=== PATIENT | male | born 1965 | race Caucasian/White ===

== ENCOUNTER 2018-07-03 08:51 | Emergency (ER) | payer BC, MEDICARE ==
[~2018-07-03] VITALS: Ht 180.3 cm; Wt 87.5 kg
[~2018-07-03 08:51] MED LIST: DOL10 PO; FAMO-90 PO; GABA400C PO; IPRA14.7 IH; LEVO500T6 PO; PRED20TA5 PO
[2018-07-03 09:00] VITALS: BP 148/95
--- NOTE | 2018-07-03 09:15 | NUR ---
PT AMB TO BED 1
--- NOTE | 2018-07-03 09:24 | NUR ---
C/O LEFT LEG & REDNESS & SWELLING X 2WEEKS,LEFT FACE REDNESS , DRAINAGE & SWELLING X 1 WEEK . DENIES N/V/D; SKIN IS PINK/WARM/DRY; AAOX4 WITH EVEN AND STEADY GAIT; LUNGS CLEAR BL; HR EVEN AND REGULAR; PT DENIES ANY FEVER, CP, SOB, OR COUGH AT THIS TIME; PATIENT STATES PAIN OF 10/10 AT THIS TIME; VSS; PATIENT POSITIONED FOR COMFORT; HOB ELEVATED; BEDRAILS UP X2; BED DOWN. ER MD MADE AWARE OF PT STATUS.
[2018-07-03] MEDS ORDERED: NACL 0.9% 1,000 ML IV SCH (09:38)
[2018-07-03] MEDS ORDERED: CLINDAMYCIN 900 MG in DEXTROSE 5% 100 ML IV ONE (09:40)
[2018-07-03] MEDS ORDERED: CLINDAMYCIN 900 MG/6 ML VIAL IV ONE (10:01)
--- NOTE | 2018-07-03 10:05 | NUR ---
PT IS A HARD STICK, NOTIFIED CHARGE NURSE AND DR. FELICIANO. PT ALSO STATED HE DOES NOT WANT TO PERIPHERAL IV, HE SAYS HE IS A VERY HARD STICK. UNABLE TO GIVE ORDERED IV MEDS RIGHT NOW. DR. FELICIANO MADE AWARE.
[2018-07-03 10:27] LABS: BILIRUBIN,URINE NEGATIVE (NEGATIVE); COLOR,URINE YELLOW (YELLOW); LEUKOCYTE ESTERASE ,URINE NEGATIVE (NEGATIVE); NITRITE, URINE NEGATIVE (NEGATIVE); UGLUCOSE NEGATIVE (NEGATIVE)
[2018-07-03 10:32] LABS: APPEARANCE,URINE SLIGHTLY HAZY (CLEAR)
[2018-07-03 10:33] LABS: BLOOD, URINE TRACE (NEGATIVE); RBC,URINE 3-10 (FEW) /HPF (0-5); WBC,URINE 0-5 (RARE) /HPF (0-5)
[2018-07-03 10:44] LABS: BARBITURATE, URINE NEG. ng/ml (NEG <=200); BENZODIAZEPINE, URINE NEG. ng/mL (NEG <=200); CANNABINOID, URINE POS. ng/mL (NEG <=50); COCAINE, URINE NEG. ng/mL (NEG <=300); OPIATE, URINE POS. ng/mL (NEG <=2000); PHENCYCLIDINE SCREEN,URINE NEG. ng/mL (NEG <=25)
[2018-07-03] MEDS ORDERED: KETOROLAC 60 MG/2 ML VIAL IM ONE (11:20)
[2018-07-03] MEDS ORDERED: CLINDAMYCIN 600 MG/4 ML VIAL IM ONE (11:20)
[2018-07-03] MEDS ORDERED: DOXYCYCLINE 100 MG CAP PO ONE (11:20)
--- NOTE | 2018-07-03 11:25 | NUR ---
SPEAKING WITH --REVIEWED ULTRASOUND READ PLAN IS TO MEDICATE IM AND NO PICC LINE WARRANTED AT THIS TIME. ---PT REFUSED LABS IF HE IS NOT GETTING A PICC LINE MD AWARE
[2018-07-03 12:30] VITALS: BP 135/89
--- NOTE | 2018-07-03 12:30 | NUR ---
Patient discharged with v/s stable. Written and verbal after care instructions given and explained. Patient alert, oriented and verbalized understanding of instructions. Ambulatory with steady gait. All questions addressed prior to discharge. ID band removed. Patient advised to follow up with PMD. Rx of DOXYCYCLINE AND CLINDAMYCIN given. Patient educated on indication of medication including possible reaction and side effects. Opportunity to ask questions provided and answered.
== END 2018-07-03 12:30 | disposition home or self-care (01) ==
LOC: MED 08:51
DX: L08.9 Local infection of the skin and subcutaneous tissue, unspecified (principal); I10 Essential (primary) hypertension; J44.9 Chronic obstructive pulmonary disease, unspecified; Z79.899 Other long term (current) drug therapy
CPT/HCPCS: 71045; 80305; 81001; 87086; 93971; 96372; 99284; J1885; J3490; Q0092

== ENCOUNTER 2018-09-10 16:32 | Emergency (ER) | payer BC ==
[~2018-09-10] VITALS: Ht 180.3 cm; Wt 86.2 kg
[2018-09-10 16:43] VITALS: BP 147/87
--- NOTE | 2018-09-10 19:14 | NUR ---
CALLED PT IN LOBBY, NO RESPONSE, LWBS
--- NOTE | 2018-09-10 19:25 | NUR ---
PT WAS CALLED FROM THE LOBBY FOR THE SECOND TIME, NO RESPONSE, LWBS.
--- NOTE | 2018-09-10 19:26 | NUR ---
PATIENT LEFT WITHOUT BEING SEEN BY DR. FELICIANO. NO FURTHER CARE PROVIDED FOR PATIENT.
== END 2018-09-10 19:25 | disposition left against medical advice (07) ==
LOC: MED 16:32
DX: R07.81 Pleurodynia (principal); Z53.21 Procedure and treatment not carried out due to patient leaving prior to being seen by health care provider
CPT/HCPCS: 81002

== ENCOUNTER 2019-06-13 16:17 | Emergency (ER) | payer BC ==
[~2019-06-13] VITALS: Ht 180.3 cm; Wt 88.5 kg
[2019-06-13 16:35] VITALS: BP 125/58
--- NOTE | 2019-06-13 16:55 | NUR ---
54 YO MALE CO SOB AND WEIGHT GAIN AROUND WAIST X4D. PT HAS HISTORY OF COPD AND CHF. PT TAKES GABAPENTIN AND METHACODONE AT HOME. LUNG SOUNDS DIMINISHED IN ALL LUG HALEY.
[2019-06-13] MEDS ORDERED: IPRATROPIUM 0.02% 0.5 MG/2.5 ML NEBU INH ONE (17:00)
[2019-06-13] MEDS ORDERED: predniSONE 20 MG TAB PO ONE (17:00)
[2019-06-13] MEDS ORDERED: ALBUTEROL 0.083% 2.5 MG/3 ML NEBU INH ONE (17:00)
--- NOTE | 2019-06-13 17:00 | NUR ---
AT BEDSIDE WITH PT
--- NOTE | 2019-06-13 17:25 | NUR ---
RT AT BEDSIDE. LUNG SOUNDS CLEAR AFTER BREATHING TX
[2019-06-13 18:53] VITALS: BP 125/58
--- NOTE | 2019-06-13 18:54 | NUR ---
Patient discharged with v/s stable. Written and verbal after care instructions given and explained. Patient alert, oriented and verbalized understanding of instructions. Ambulatory with steady gait. All questions addressed prior to discharge. ID band removed. Patient advised to follow up with PMD. Rx of NORCO AND PREDINOLOSONE given. Patient educated on indication of medication including possible reaction and side effects. Opportunity to ask questions provided and answered.
== END 2019-06-13 18:54 | disposition home or self-care (01) ==
LOC: MED 16:17
DX: J44.1 Chronic obstructive pulmonary disease with (acute) exacerbation (principal); G89.29 Other chronic pain; M79.644 Pain in right finger(s); I11.0 Hypertensive heart disease with heart failure; I50.9 Heart failure, unspecified; Z79.899 Other long term (current) drug therapy; Z86.19 Personal history of other infectious and parasitic diseases; Z98.890 Other specified postprocedural states
CPT/HCPCS: 71045; 73140; 94640; 99283; J7512; J7613; J7644; Q0092

== ENCOUNTER 2020-11-03 20:19 | Emergency (ER) | payer BC ==
[~2020-11-03] VITALS: Ht 180.3 cm; Wt 81.6 kg
[2020-11-03 20:20] VITALS: BP 139/82
--- NOTE | 2020-11-03 20:20 | NUR ---
GEM RIVERA. TAKEN TO CHAIR C
--- NOTE | 2020-11-03 20:20 | NUR ---
SEE COMPLETE ASSESSMENT
--- NOTE | 2020-11-03 20:31 | NUR ---
Dr. Paniagua examining patient.
[2020-11-03] MEDS ORDERED: MORPHINE SULFATE 4 MG/ML SYR IM ONE (20:35)
--- NOTE | 2020-11-03 20:46 | NUR ---
PATIENT [facility]ICE DEPT. PATIENT EXAMINED BY DR. MCCULLOUGH. PATIENT MEDICALLY CLEARED AND RELEASED IN CUSTODY IN STABLE CONDITION. ORIGINAL PRE-BOOK FORM GIVEN TO OFFICER PERLA, #[id number].
== END 2020-11-03 20:46 ==
LOC: MED 20:19
DX: R51.9 Headache, unspecified (principal); I11.9 Hypertensive heart disease without heart failure; J44.9 Chronic obstructive pulmonary disease, unspecified; Z02.89 Encounter for other administrative examinations; Z79.899 Other long term (current) drug therapy
CPT/HCPCS: 96372; 99283; J2270

== ENCOUNTER 2020-12-31 16:12 | Emergency (ER) | payer BC ==
[~2020-12-31] VITALS: Ht 172.7 cm; Wt 63.5 kg
[~2020-12-31 16:12] MED LIST changes: -DOL10 PO; +METH-1550 PO
[2020-12-31 16:15] VITALS: BP 133/87
--- NOTE | 2020-12-31 16:24 | NUR ---
PT GEMA ALS AND PLACED IN BED 10.
--- NOTE | 2020-12-31 16:28 | NUR ---
CODE BRAIN CALLED BY DR COLEMAN
--- NOTE | 2020-12-31 16:32 | NUR ---
entry level installation technician at bedside transporting patient by helio. Addendum: 12/31/20 at 1739 by JUANITA Pt attached to Telemetry box accompanied by ELIUD.
--- NOTE | 2020-12-31 16:35 | NUR ---
55 y/o M BIBA from outside laundry mat with daughter c/o seizure. Per EMS, witnessed seizure of unknown duration; paramedics on scene gave Versed 5mg IN. Per EMS, patient presented A&Ox4 and became altered upon arrival in ER. Patient noted with numerous silvana to R side of scalp with swelling noted. Pt noted with admit wrist band from [facility] dated 12/29/20. Patient currently arousal to painful stimuli and unable to follow verbal commands at this time. A&Ox0 GCS Eye 2 Motor 4 Verbal 1. Pt placed into gown; AccuChek by EMS 113. Seizure precautions in place. PMH/Sx/Meds: Brain tumor, seizures, Keppra (last taken 2 months ago) Sx: Brain tumor sx
--- NOTE | 2020-12-31 16:50 | NUR ---
Patient back from CT via gurney; placed back onto product safety engineer.
--- NOTE | 2020-12-31 16:55 | NUR ---
EMT at bedside for EKG
--- NOTE | 2020-12-31 17:01 | NUR ---
ERMD at bedside for Ultrasound IV
--- NOTE | 2020-12-31 17:13 | NUR ---
Lab at bedside; UA and blood sample given to CPT Nettie at ER bedside.
[2020-12-31 17:25] LABS: BASOPHILS % (AUTO) 0.7 % (0.0-2.0); EOSINOPHILS # (AUTO) 0.1 K/uL (0-0.4); HEMATOCRIT 30.9 % (36-52); HEMOGLOBIN 9.7 g/dL (12.0-18.0); LYMPHOCYTES # (AUTO) 1.1 K/uL (2.0-11.5); LYMPHOCYTES % (AUTO) 15.3 % (20.5-51.1); MEAN CORPUSCULAR HEMOGLOBIN 24 pg (27-31); MEAN CORPUSCULAR HGB CONC 31 g/dL (33-37); MEAN CORPUSCULAR VOLUME 77.2 fL (80-94); MONOCYTES # (AUTO) 0.7 K/uL (0.8-1.0); MONOCYTES % (AUTO) 9.2 % (1.7-9.3); NEUTROPHILS # (AUTO) 5.3 K/uL (1.8-7.7); NEUTROPHILS % (AUTO) 73.8 % (42.2-75.2); PLATELET COUNT (AUTO) 692 K/uL (140-450); RED CELL DISTRIBUTION WIDTH 16.7 % (11.6-13.7); WHITE BLOOD COUNT (AUTO) 7.2 K/uL (4.8-10.8)
--- NOTE | 2020-12-31 17:30 | NUR ---
UNABLE TO CONTACT NEXT OF KIN; PHONE NUMBERS INCORRECT. PATIENT UNABLE TO PROVIDE ANY ADDITIONAL INFORMATION FOR FAMILY CONTACT. DR. COLEMAN MADE AWARE.
[2020-12-31 17:42] LABS: ANION GAP 10.7 (8-16); CREATININE 0.8 mg/dL (0.6-1.3); POTASSIUM 3.7 mmol/L (3.5-5.1)
[2020-12-31 17:44] LABS: PROTHROMBIN TIME 9.9 secs (10.8-13.4)
[2020-12-31 17:50] LABS: PHENYTOIN (DILANTIN) < 0.5 ug/ml (10.0-20.0)
--- NOTE | 2020-12-31 18:01 | NUR ---
PT OBSERVED IN BED RESTING, VSS, RR EVEN AND UNLABORED.
[2020-12-31 18:17] LABS: BARBITURATE, URINE NEGATIVE ng/ml (NEG <=200); BENZODIAZEPINE, URINE NEGATIVE ng/mL (NEG <=200); CANNABINOID, URINE NEGATIVE ng/mL (NEG <=50); COCAINE, URINE NEGATIVE ng/mL (NEG <=300); OPIATE, URINE POSITIVE ng/mL (NEG <=2000); PHENCYCLIDINE SCREEN,URINE NEGATIVE ng/mL (NEG <=25)
[2020-12-31 18:19] LABS: PHENOBARBITAL < 1 ug/ml (15-40)
--- NOTE | 2020-12-31 18:45 | NUR ---
PATIENT OBSERVED RESTING IN BED, VSS, RR EVEN AND UNLABORED.
--- NOTE | 2020-12-31 18:57 | NUR ---
Patient gave verbal consent to speak with niece. Pt on mobile phone with niece at this time.
--- NOTE | 2020-12-31 19:03 | NUR ---
Cindy Parks (niece) [phone]. Abby (daughter) [phone] Spoke with Cindy who does not know pt's surgeron name @ [facility]. States she lives in [place] and will be able to pick patient up if discharged.
--- NOTE | 2020-12-31 19:20 | NUR ---
Report and transfer of care endorsed to ELIUD Conde.
[2020-12-31] MEDS ORDERED: levETIRAcetam 1,000 MG in NACL 0.9% 100 ML IV ONE (20:30)
[2020-12-31] MEDS ORDERED: levETIRAcetam 100 MG/ML VIAL IV ONE (20:36)
--- NOTE | 2020-12-31 21:10 | NUR ---
JANE COVID SWAB COLLECTED AND TAKEN TO LAB
--- NOTE | 2020-12-31 21:15 | NUR ---
PT. ASKING FOR PAIN MEDICATION FOR HEAD PAIN. DENIZ COLEMAN MADE AWARE. NO NEW ORDERS GIVEN.
--- NOTE | 2020-12-31 21:40 | NUR ---
PT. LAYING IN BED IN POSITION, NO DISTRESS NOTED. BREATHING EVEN AND UNLABORED.
--- NOTE | 2021-01-01 02:00 | NUR ---
PT. IN POSITION, WITH BLANKET OVER HIS HEAD. NO DISTRESS NOTED AT THIS TIME
--- NOTE | 2021-01-01 04:35 | NUR ---
PT. IN SUPINE POSITION, RESTING COMFORTABLY WITH EYES CLOSED. AUDIBLE SNORING SOUNDS CAN BE HEARD, WILL CONTINUE TO MONITOR
--- NOTE | 2021-01-01 05:42 | NUR ---
PT. LAYING IN SUPINE POSITION, HR EVEN AND REGULAR. BREATHING UNLABORED. WILL CONTINUE TO MONITOR
--- NOTE | 2021-01-01 06:35 | NUR ---
PT. RESTING WITH EYES CLOSED IN POSITION, HR EVEN AND REGULAR. BREATHING UNLABORED.
--- NOTE | 2021-01-01 07:16 | NUR ---
REPORT GIVEN TO ELIUD HEALY. TRANSFER OF CARE AT THIS TIME.
--- NOTE | 2021-01-01 07:18 | NUR ---
PATIENT RESTING IN BED, RESP EVEN AND UNLABORED. SEIZURE PADS IN PLACE, AROUSABLE TO VERBAL STIMULI
--- NOTE | 2021-01-01 07:30 | NUR ---
PATIENT HAS LEFT SIDED WEAKNESS/DEFECIT. PUPILS ARE PERRLA BILATERAL. SLURRED SPEECH. RESP EVEN AND UNLABORED. RIGHT CRANIAL SWELLING WITH STITCHES TO TEMPORAL LOBE.
[2021-01-01] MEDS ORDERED: ONDANSETRON 4 MG/2 ML VIAL IVP ONE (08:30)
--- NOTE | 2021-01-01 08:30 | NUR ---
BREAKFAST TRAY PROVIDED AT THIS TIME, PATIENT ABLE TO EAT WITHOUT DYSPHAGIA
--- NOTE | 2021-01-01 08:32 | NUR ---
PATIENT STATES HE IS GOING THROUGH [facility] WITHDRAWS HIS LAST REPORTED USE WAS ABOUT 20 HOURS AGO. MD NOTIFIED. ORDERS PLACED.
--- NOTE | 2021-01-01 09:49 | NUR ---
PATIENT HAS LEFT SIDED WEAKNESS/DEFECIT. PUPILS ARE PERRLA BILATERAL. SLURRED SPEECH. RESP EVEN AND UNLABORED. RIGHT CRANIAL SWELLING WITH STITCHES TO TEMPORAL LOBE DENIES ANY PAIN AT THIS TIME, PATIENT STATES HE IS FEELING TIRED AND WANTS TO REST.
--- NOTE | 2021-01-01 11:32 | NUR ---
BROTHER CONTACT GLENN OLIVIER
--- NOTE | 2021-01-01 11:59 | NUR ---
PATIENT SPEAKING TO BROTHER GLENN ON THE PHONE
--- NOTE | 2021-01-01 12:36 | NUR ---
REPORT CALLED TO [facility] UNIT 13A ROOM 1308, REPORT GIVEN TO DAISY DOLAN RN.
[2021-01-01] MEDS ORDERED: KETOROLAC 30 MG/ML VIAL ONE (12:50)
[2021-01-01] MEDS ORDERED: KETOROLAC 30 MG/ML VIAL IVP ONE (12:50)
[2021-01-01 13:40] VITALS: BP 117/67
--- NOTE | 2021-01-01 13:40 | NUR ---
Patient to be transferred to [facility]. Pt is being transferred due to needing higher level of care; neurosurgery. Receiving facility has accepting physician and available space. Patient or responsible republican has agreed to transfer and signed form. Patient belongings inventoried and will be sent with patient. Copy of nursing notes, lab reports, EKG, Physicians Orders and X-rays to be sent with patient. 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 Report given to [facility].
--- NOTE | 2021-01-01 13:46 | NUR ---
DAUGHTER BARNEY WAS CALLED AND NOTIFIED ABOUT THE TRANSFER AND GIVEN ROOM INFO AND PHONE NUMBER FOR FOLLOW UP.
--- NOTE | 2021-01-15 10:43 | NUR ---
LATE ENTRY- [facility] IVPB DISCONTINUED AT 2130.
== END 2021-01-01 13:40 | disposition short-term general hospital (02) ==
LOC: MED 16:12
DX: R56.9 Unspecified convulsions (principal); Z20.822 Contact with and (suspected) exposure to COVID-19; G93.9 Disorder of brain, unspecified; J44.9 Chronic obstructive pulmonary disease, unspecified; I11.0 Hypertensive heart disease with heart failure; I50.9 Heart failure, unspecified; Z98.890 Other specified postprocedural states; Z85.841 Personal history of malignant neoplasm of brain; Z79.899 Other long term (current) drug therapy
CPT/HCPCS: 36415; 70450; 71045; 80048; 80156; 80184; 80185; 80305; 85025; 85610; 85730; 87426; 93005; 96365; 96375; 99285; G0482; J1885; J1953; J2405; Q0092